=== PATIENT | male | born 1980 | race Caucasian/White ===

== ENCOUNTER → 2016-09-28 | Outpatient (CLI) | payer OTHER ==
--- NOTE | 2016-09-28 13:10 | RAD ---
Examination: Ultrasound right upper quadrant abdomen History: History of right upper quadrant pain. Comparison: None available Findings: The visualized pancreas grossly appears unremarkable. The gallbladder demonstrates no evidence of gallstones. The visualized IVC appears patent. The echogenicity the liver grossly appears unremarkable. The right lobe of the liver measures 14.2 cm. The right kidney measures 10.5 x 4.6 x 4.3 cm. There is a cystic structure identified in the right kidney measuring 1.3 x 1.4 cm Impression: 1. Small right renal cyst. 2. No evidence of gallstones.
== END | disposition home or self-care (01) ==
LOC: US 12:04
PROVIDERS: ATTEND Family Medicine
DX: R10.11 Right upper quadrant pain (principal); N28.1 Cyst of kidney, acquired
CPT/HCPCS: 76705